=== PATIENT | female | born 2000 ===

== ENCOUNTER 2020-05-28 17:05 | Emergency (ER) | payer BC, OTHER ==
--- NOTE | 2020-05-28 18:22 | EDM.PDOC ---
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 She has cramping on and off. No fever, chills or cough. She has been spotting off and on with some mild cramping. Denies drugs or ETOH. Onset: Today Duration: Constant Location: Reports: Abdomen Quality: Reports: Other (cramping) Severity: Mild Improves with: Reports: None Worsens with: Reports: None Associated Symptoms: Reports: No Other Symptoms - Related Data Allergies Allergy/AdvReac Type Severity Reaction Status Date / Time amoxicillin Allergy Hives Verified 05/28/20 17:12 Home Meds: Home Meds . [No Known Home Meds] 12/01/18 [History] Past Medical History - Past Health History Medical/Surgical History: Denies Medical/Surgical History Cardiovascular History: Reports: None Respiratory History: Reports: None Gastrointestinal History: Reports: None Genitourinary History: Reports: None STATISTICIAN THEORETICAL History: Reports: Musculoskeletal History: Reports: Other (See Below) Other Musculoskeletal History: fx right arm Neurological History: Reports: None Psychiatric History: Reports: None Endocrine/Metabolic History: Reports: None Hematologic History: Reports: None Immunologic History: Reports: None Oncologic (Cancer) History: Reports: None Dermatologic History: Reports: None - Infectious Disease History Infectious Disease History: Reports: None - Past Surgical History Head Surgeries/Procedures: Reports: None HEENT Surgical History: Reports: Oral Surgery Musculoskeletal Surgical History: Reports: Other (See Below) Other Musculoskeletal Surgeries/Procedures:: right arm Social & Family History - Family History Family Medical History: Noncontributory - Tobacco Use Smoking Status *Q: Never Smoker Second Hand Smoke Exposure: No - Caffeine Use Caffeine Use: Reports: None - Recreational Drug Use Recreational Drug Use: No ED ROS GENERAL - Review of Systems Review Of Systems: Comprehensive ROS is negative, except as noted in HPI. ED EXAM - Physical Exam Exam: See Below Exam Limited By: No Limitations General Appearance: Alert, WD/WN, No Apparent Distress Eye Exam: Bilateral Eye: Normal Inspection Head: Atraumatic, Normocephalic Neck: Normal Inspection, Supple, Non-Tender, Full Range of Motion Respiratory/Chest: No Respiratory Distress, Lungs Clear, Normal Breath Sounds, No Accessory Muscle Use, Chest Non-Tender Cardiovascular: Normal Peripheral Pulses, Regular Rate, Rhythm, No Edema, No Gallop, No JVD, No Murmur, No Rub GI/Abdominal Exam: Other (soft. Non tender.) Neurological: Alert, Oriented, CN II-XII Intact, Normal Cognition, Normal Gait, Normal Reflexes, No Motor/Sensory Deficits Psychiatric: Normal Affect, Normal Mood Skin Exam: Warm, Dry, Intact, Normal Color, No Rash Course - Vital Signs Text/Narrative:: 11 weeks with positive HCG today and mild cramping and spotting. She is to see her [facility] this week. Rest and no lifting. Last Recorded V/S: Last Vital Signs Temp 98.4 F 05/28/20 17:13 Pulse 78 05/28/20 17:13 Resp 16 05/28/20 17:13 BP 119/68 05/28/20 17:13 Pulse Ox 99 05/28/20 17:13 - Orders/Labs/Meds Labs: Laboratory Tests 05/28/20 05/28/20 Range/Units 17:33 17:39 HCG, Qual Positive Urine Color Yellow (YELLOW) Urine Appearance Cloudy (CLEAR) Urine pH 6.0 (5.0-9.0) Ur Specific [place] >= 1.030 (1.005-1.030) Urine Protein Trace H (NEGATIVE) Urine Glucose (UA) Negative (NEGATIVE) Urine Ketones 15 H (NEGATIVE) Urine Occult Blood Large H (NEGATIVE) Urine Nitrite Negative (NEGATIVE) Urine Bilirubin Negative (NEGATIVE) Urine Urobilinogen 1.0 (0.2-1.0) mg/dL Ur Leukocyte Esterase Negative (NEGATIVE) Urine RBC >100 H /HPF Urine WBC 0-5 (0-5/HPF) /HPF Ur Epithelial Cells Few (NOT SEEN) /HPF Amorphous Sediment Few (NOT SEEN) /HPF Urine Bacteria Few (0-FEW/HPF) /HPF Urine Mucus Few H (NOT SEEN) /LPF Departure - Departure Time of Disposition: 18:20 Disposition: Home, Self-Care 01 Condition: Good Clinical Impression: 11 weeks gestation of - Discharge Information Instructions: Abdominal Pain During , [id number] Forms: ED Department Discharge Additional Instructions: Make appt with your OB doctor this next week. Your test is still positive. You may have some spotting and may be normal or could mean you may abort. No lifting. Drink lots of fluids, and rest. Sepsis Event Note (ED) - Evaluation Sepsis Screening Result: No Definite Risk - Focused Exam Vital Signs: Vital Signs Temp Pulse Resp BP Pulse Ox 05/28/20 17:13 98.4 F 78 16 119/68 99 I have read and agree with the documentation that has been completed regarding this visit. By signing this record, I attest that the documentation was completed in my physical presence and is an accurate record of the encounter.
== END 2020-05-28 18:25 | disposition home or self-care (01) ==
LOC: DL.ED 17:05
DX: O99.89 Other specified diseases and conditions complicating pregnancy, childbirth and the puerperium (principal); R10.9 Unspecified abdominal pain; Z88.1 Allergy status to other antibiotic agents; Z3A.11 11 weeks gestation of pregnancy
CPT/HCPCS: 36415; 81001; 84703; 99283; 99284

== ENCOUNTER 2020-05-30 23:21 | Emergency (ER) | payer BC, OTHER ==
[2020-05-31 00:06] LABS: ANION GAP 15.4 mEq/L (7-13); CHLORIDE,CL 103 mmol/L (98-107); SODIUM,NA 139 mmol/L (136-145)
[2020-05-31] MEDS: Ondansetron 4 MG/2 ML SDV IVPUSH ONE (00:33)
[2020-05-31] MEDS: HYDROmorphone 0.5 MG/0.5 ML Syringe IVPUSH ONE (00:34)
--- NOTE | 2020-05-31 00:56 | EDM.PDOC ---
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 Estimate s 12 weeks , US at 9 weeks baby per report, Passed large tissue yesterday with voiding. 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: , Spontaneous Musculoskeletal History: Reports: Other (See Below) Other Musculoskeletal History: fx right arm Neurological History: Reports: None Psychiatric History: Reports: None Endocrine/Metabolic History: Reports: None Hematologic History: Reports: None Immunologic History: Reports: None Oncologic (Cancer) History: Reports: None Dermatologic History: Reports: None - Infectious Disease History Infectious Disease History: Reports: None - Past Surgical History Head Surgeries/Procedures: Reports: None HEENT Surgical History: Reports: Oral Surgery Musculoskeletal Surgical History: Reports: Other (See Below) Other Musculoskeletal Surgeries/Procedures:: right arm Social & Family History - Family History Family Medical History: Noncontributory - Tobacco Use Smoking Status *Q: Never Smoker Second Hand Smoke Exposure: No - Caffeine Use Caffeine Use: Reports: None - Recreational Drug Use Recreational Drug Use: No ED ROS GENERAL - Review of Systems Review Of Systems: Comprehensive ROS is negative, except as noted in HPI. ED EXAM - Physical Exam Exam: See Below Exam Limited By: No Limitations General Appearance: Alert, Moderate Distress Eye Exam: Bilateral Eye: EOMI Ears: Normal External Exam Nose: Normal Inspection Throat/Mouth: Normal Inspection, Normal Oropharynx, Perioral Cyanosis Head: Atraumatic Neck: Normal Inspection Respiratory/Chest: No Respiratory Distress, Lungs Clear, Normal Breath Sounds Cardiovascular: Normal Peripheral Pulses, Regular Rate, Rhythm GI/Abdominal Exam: Normal Bowel Sounds, Soft, Tender (Female) Exam: Other (small amount dark blood vaginal os, partial insertion speculum into vaginal vault, products of conseptio readily slid to bill of speculum , sac intact. scant bleeding after passage Patient reports cramping and pain improved. ) Course - Vital Signs Last Recorded V/S: Last Vital Signs Temp 98.6 F 05/30/20 23:25 Pulse 67 05/30/20 23:25 Resp 18 05/30/20 23:25 BP 119/81 05/30/20 23:25 Pulse Ox 99 05/30/20 23:25 - Orders/Labs/Meds Orders: Active Orders 24 hr Category Date Time Status OB Ltd 1 or More Fetus [US] Urgent Exams 05/31/20 00:08 Ordered CULTURE BLOOD [BC] Stat Lab 05/30/20 23:39 Received Labs: Laboratory Tests 05/30/20 05/30/20 05/30/20 Range/Units 23:39 23:39 23:39 WBC 11.3 H (5.0-10.0) 10^3/uL RBC 4.32 (4.2-5.4) 10^6/uL Hgb 13.0 (12.0-16.0) g/dL Hct 38.6 (37.0-47.0) % MCV 89.4 (80-100) fL MCH 30.1 (27.0-34.0) pg MCHC 33.7 (33.0-35.0) g/dL Plt Count 242 (150-450) 10^3/uL Neut % (Auto) 70.2 (42.2-75.2) % Lymph % (Auto) 20.7 (20.5-50.1) % [place] % (Auto) 7.1 (2-8) % Eos % (Auto) 1.8 (1.0-3.0) % Baso % (Auto) 0.2 (0.0-1.0) % Sodium 139 (136-145) mmol/L Potassium 3.4 L (3.5-5.1) mmol/L Chloride 103 (98-107) mmol/L Carbon Dioxide 24 (21-32) mmol/L Anion Gap 15.4 H (7-13) mEq/L BUN 10 (7-18) mg/dL Creatinine 0.72 (0.55-1.02) mg/dL Est Cr Clr Drug Dosing 93.27 mL/min Estimated GFR (MDRD) > 60 BUN/Creatinine Ratio 13.9 (No establ ref range) Glucose 89 (74-99) mg/dL Lactic Acid 1.0 (0.4-2.0) mmol/L Calcium 8.4 L (8.5-10.1) mg/dL Total Bilirubin 0.8 (0.2-1.0) mg/dL AST 15 (15-37) U/L ALT 22 (14-59) U/L Alkaline Phosphatase 41 L (46-116) U/L Total Protein 6.8 (6.4-8.2) g/dL Albumin 3.9 (3.4-5.0) g/dL Globulin 2.9 Albumin/Globulin Ratio 1.3 Meds: Medications Discontinued Medications Generic Name Dose Route Start Last Admin Trade Name Chelsey PRN Reason Stop Dose Admin Hydromorphone HCl 0.5 mg 05/31/20 00:08 05/31/20 00:34 Dilaudid IVPUSH 05/31/20 00:09 0.5 mg ONETIME ONE Administration Ondansetron HCl 4 mg 05/31/20 00:08 05/31/20 00:33 Zofran IVPUSH 05/31/20 00:09 4 mg ONETIME ONE Administration - Re-Assessments/Exams Free Text/Narrative Re-Assessment/Exam: 05/31/20 06:[address] Mohr. Departure - Departure Time of Disposition: 00:57 Disposition: Home, Self-Care 01 Condition: Good Clinical Impression: Miscarriage - Discharge Information *PRESCRIPTION DRUG MONITORING PROGRAM REVIEWED*: No *COPY OF PRESCRIPTION DRUG MONITORING REPORT IN PATIENT CJ: No Instructions: Miscarriage, [id number] Referrals: Jennifer Contreras NP [Primary Care Provider] - Forms: ED Department Discharge Additional Instructions: 05/31/20 00:54 rest increase fluids ibuprofen or tylenol, alternating every 4 hours as needed for discomfort urgent follow up if severe, pain, fever or increased bleeding Follow up in clinic as scheduled Sepsis Event Note (ED) - Evaluation Sepsis Screening Result: No Definite Risk - Focused Exam Vital Signs: Vital Signs Temp Pulse Resp BP Pulse Ox 05/30/20 23:25 98.6 F 67 18 119/81 99 - My Orders Last 24 Hours: My Active Orders 05/30/20 23:39 CULTURE BLOOD [BC] Stat 05/31/20 00:08 OB Ltd 1 or More Fetus [US] Urgent - Assessment/Plan Last 24 Hours: My Active Orders 05/30/20 23:39 CULTURE BLOOD [BC] Stat 05/31/20 00:08 OB Ltd 1 or More Fetus [US] Urgent
== END 2020-05-31 01:12 | disposition home or self-care (01) ==
LOC: DL.ED 23:21
DX: O03.9 Complete or unspecified spontaneous abortion without complication (principal); Z88.1 Allergy status to other antibiotic agents
CPT/HCPCS: 36415; 80053; 83605; 85025; 87040; 96374; 96375; 99284; J1170; J2405

== ENCOUNTER 2020-10-20 07:29 | Emergency (ER) | payer BC, OTHER ==
--- NOTE | 2020-10-20 07:40 | EDM.PDOC ---
"ED HPI GENERAL MEDICAL PROBLEM - General Chief Complaint: Abdominal Pain Stated Complaint: LOWER RIGHT ABDOMINAL PAIN/VOMMITING Time Seen by Provider: 10/20/20 07:50 Source of Information: Reports: Patient, RN, RN Notes Reviewed History Limitations: Reports: No Limitations - History of Present Illness INITIAL COMMENTS - FREE TEXT/NARRATIVE: Patient presents to the ED via personal vehicle with complaints of right lower quadrant pain. The patient states the pain began this morning while she was getting ready for work and has progressively worsened over that time. She characterizes it as sharp and stabbing in nature; she states it radiates to her right lateral lower abdomen. The patient states she is currently , L0, with a miscarriage in May 2020. She states her LMP was 08/14/2020; she has not yet had her first OB visit but states she is scheduled for this coming Friday10/24/2020 at [facility]. She has not taken any medications for this pain. She denies experiencing pain similar to this in the past. She does attest to nausea with one bout of emesis this morning. She does attest to dysuria with hematuria for which she started taking Asos. She denies fever, shaking chills, recent illness, headache, vision changes, palpitations, diarrhea, vaginal discharge, or vaginal bleeding. She denies tobacco, alcohol, or recreational drug use. 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 Musculoskeletal History: Reports: Other (See Below) Other Musculoskeletal History: fx right arm Neurological History: Reports: None Psychiatric History: Reports: None Endocrine/Metabolic History: Reports: None Hematologic History: Reports: None Immunologic History: Reports: None Oncologic (Cancer) History: Reports: None Dermatologic History: Reports: None - Infectious Disease History Infectious Disease History: Reports: None - Past Surgical History Head Surgeries/Procedures: Reports: None HEENT Surgical History: Reports: Oral Surgery Musculoskeletal Surgical History: Reports: Other (See Below) Other Musculoskeletal Surgeries/Procedures:: right arm Social & Family History - Family History Family Medical History: No Pertinent Family History - Caffeine Use Caffeine Use: Reports: None ED ROS GENERAL - Review of Systems Review Of Systems: Comprehensive ROS is negative, except as noted in HPI. ED EXAM, GI/ABD - Physical Exam Exam: See Below Exam Limited By: No Limitations General Appearance: Alert, WD/WN, No Apparent Distress, Thin Eyes: Bilateral: Normal Appearance, EOMI Respiratory/Chest: No Respiratory Distress, Lungs Clear, Normal Breath Sounds, No Accessory Muscle Use, Chest Non-Tender Cardiovascular: Normal Peripheral Pulses, Regular Rate, Rhythm, No Edema, No Gal lop, No JVD, No Murmur, No Rub GI/Abdominal Exam: Abnormal Bowel Sounds (Hypoactive) Course - Vital Signs Last Recorded V/S: Last Vital Signs Temp 98.1 F 10/20/20 07:35 Pulse 93 10/20/20 07:35 Resp 16 10/20/20 07:35 BP 106/57 L 10/20/20 07:35 Pulse Ox 99 10/20/20 07:35 - Orders/Labs/Meds Orders: Active Orders 24 hr Category Date Time Status CULTURE URINE [RM] Stat Lab 10/20/20 07:41 Received Labs: Laboratory Tests 10/20/20 10/20/20 10/20/20 Range/Units 07:41 07:46 07:46 WBC 9.1 (5.0-10.0) 10^3/uL RBC 4.58 (4.2-5.4) 10^6/uL Hgb 14.0 (12.0-16.0) g/dL Hct 40.9 (37.0-47.0) % MCV 89.3 (80-100) fL MCH 30.6 (27.0-34.0) pg MCHC 34.2 (33.0-35.0) g/dL Plt Count 276 (150-450) 10^3/uL Neut % (Auto) 69.4 (42.2-75.2) % Lymph % (Auto) 20.8 (20.5-50.1) % [place] % (Auto) 8.4 H (2-8) % Eos % (Auto) 1.2 (1.0-3.0) % Baso % (Auto) 0.2 (0.0-1.0) % Sodium 134 L (136-145) mmol/L Potassium 3.3 L (3.5-5.1) mmol/L Chloride 101 (98-107) mmol/L Carbon Dioxide 24 (21-32) mmol/L Anion Gap 12.3 (7-13) mEq/L BUN 7 (7-18) mg/dL Creatinine 0.81 (0.55-1.02) mg/dL Est Cr Clr Drug Dosing 84.18 mL/min Estimated GFR (MDRD) > 60 BUN/Creatinine Ratio 8.6 (No establ ref range) Glucose 96 (74-99) mg/dL Calcium 9.2 (8.5-10.1) mg/dL Total Bilirubin 1.1 H (0.2-1.0) mg/dL AST 12 L (15-37) U/L ALT 18 (14-59) U/L Alkaline Phosphatase 39 L (46-116) U/L C-Reactive Protein 0.6 (0.0-0.9) mg/dL Total Protein 7.2 (6.4-8.2) g/dL Albumin 4.1 (3.4-5.0) g/dL Globulin 3.1 Albumin/Globulin Ratio 1.3 HCG, Quant (0-6) mIU/mL Urine Color Yellow (YELLOW) Urine Appearance Cloudy (CLEAR) Urine pH 6.0 (5.0-9.0) Ur Specific [place] >= 1.030 (1.005-1.030) Urine Protein 30 H (NEGATIVE) Urine Glucose (UA) Negative (NEGATIVE) Urine Ketones Negative (NEGATIVE) Urine Occult Blood Large H (NEGATIVE) Urine Nitrite Negative (NEGATIVE) Urine Bilirubin Negative (NEGATIVE) Urine Urobilinogen 0.2 (0.2-1.0) mg/dL Ur Leukocyte Esterase Trace H (NEGATIVE) Urine RBC 75-100 H /HPF Urine WBC 0-5 (0-5/HPF) /HPF Ur Epithelial Cells Many H (NOT SEEN) /HPF Amorphous Sediment Few (NOT SEEN) /HPF Urine Bacteria Moderate H (0-FEW/HPF) /HPF Urine Mucus Occasional (NOT SEEN) /LPF 12/11/20 Range/Units 07:46 WBC (5.0-10.0) 10^3/uL RBC (4.2-5.4) 10^6/uL Hgb (12.0-16.0) g/dL Hct (37.0-47.0) % MCV (80-100) fL MCH (27.0-34.0) pg MCHC (33.0-35.0) g/dL Plt Count (150-450) 10^3/uL Neut % (Auto) (42.2-75.2) % Lymph % (Auto) (20.5-50.1) % [place] % (Auto) (2-8) % Eos % (Auto) (1.0-3.0) % Baso % (Auto) (0.0-1.0) % Sodium (136-145) mmol/L Potassium (3.5-5.1) mmol/L Chloride (98-107) mmol/L Carbon Dioxide (21-32) mmol/L Anion Gap (7-13) mEq/L BUN (7-18) mg/dL Creatinine (0.55-1.02) mg/dL Est Cr Clr Drug Dosing mL/min Estimated GFR (MDRD) BUN/Creatinine Ratio (No establ ref range) Glucose (74-99) mg/dL Calcium (8.5-10.1) mg/dL Total Bilirubin (0.2-1.0) mg/dL AST (15-37) U/L ALT (14-59) U/L Alkaline Phosphatase (46-116) U/L C-Reactive Protein (0.0-0.9) mg/dL Total Protein (6.4-8.2) g/dL Albumin (3.4-5.0) g/dL Globulin Albumin/Globulin Ratio HCG, Quant 07546 H (0-6) mIU/mL Urine Color (YELLOW) Urine Appearance (CLEAR) Urine pH (5.0-9.0) Ur Specific [place] (1.005-1.030) Urine Protein (NEGATIVE) Urine Glucose (UA) (NEGATIVE) Urine Ketones (NEGATIVE) Urine Occult Blood (NEGATIVE) Urine Nitrite (NEGATIVE) Urine Bilirubin (NEGATIVE) Urine Urobilinogen (0.2-1.0) mg/dL Ur Leukocyte Esterase (NEGATIVE) Urine RBC /HPF Urine WBC (0-5/HPF) /HPF Ur Epithelial Cells (NOT SEEN) /HPF Amorphous Sediment (NOT SEEN) /HPF Urine Bacteria (0-FEW/HPF) /HPF Urine Mucus (NOT SEEN) /LPF - Radiology Interpretation Free Text/Narrative:: [facility] [place] [facility] Final Radiology Report Call: [phone] assistance Online chat: [email or web address] Name: PADMINI CORADO Age: 20Years F Date: 10/20/2020 SSN: -- : 2000 Study: US OB TRANSVAGINAL Requesting Physician: Pam Son Images: 88 Addl Studies: Provided Clinical History: RLQ pain; Sudden onset Contrast: Without Contrast Medium: Contrast Amount: Contrast Method: Page 1 of 2 PROCEDURE INFORMATION: Exam: US , Transvaginal Exam date and time: 10/20/2020 8:27 AM Age: 20 years old Clinical indication: complicated by abdominal or pelvic pain; Right lower quadrant; First trimester; Gestational age or lmp: 9 w 0 d; ; Additional info: Rlq pain; Sudden onset TECHNIQUE: Imaging protocol: Real-time transvaginal obstetrical ultrasound of the maternal pelvis and a first trimester with image documentation. Transvaginal imaging was used for better evaluation of the fetus, adnexa, and/or cervix. COMPARISON: No relevant prior studies available. FINDINGS: Gestation: There is a single intrauterine with a crown-rump length of 2.15 cm corresponding to 8 weeks 6 days. The gestational sac measures 3.6 cm corresponding to 9 weeks 1 day. heart rate: 167 BPM. BIOMETRY: Gestational age (AUA): GESTATIONAL AGE AUA BY ULTRASOUND: 9 weeks 0 days. Estimated due date (AUA): NINI BY ULTRASOUND: 05/25/2021 Gestational age by LMP: 9 weeks 3 days Estimated due date (LMP):NINI by LMP 05/22/2021 (LMP 08/15/2020) MATERNAL: Right adnexa: Normal. Subcentimeter right ovarian follicle. Left adnexa: Normal. Intraperitoneal space: No free fluid PADMINI CORADO | Final Radiology Report CONFIDENTIALITY STATEMENT This report is intended only for use by the referring physician, and only in accordance with law. If you received this in error, call [phone]. Page 2 of 2 IMPRESSION: Single viable intrauterine with pole measuring 8 weeks 6 days. AUA by ultrasound 9 weeks 0 days. Thank you for allowing us to participate in the care of your patient. Dictated and Authenticated by: Aleida Downing MD 10/20/2020 10:13 AM Central Time ([place] & [place]) [facility] Final Radiology Report Call: [phone] assistance Online chat: [email or web address] Name: PADMINI CORADO Age: 20Years F Date: 10/20/2020 SSN: -- : 2000 Study: US OB LTD 1 OR MORE FETUS Requesting Physician: Pam Son Images: 88 Addl Studies: Provided Clinical History: RLQ pain; Sudden onset Contrast: Without Contrast Medium: Contrast Amount: Contrast Method: Page 1 of 2 PROCEDURE INFORMATION: Exam: US , Limited Exam date and time: 10/20/2020 8:27 AM Age: 20 years old Clinical indication: complicated by abdominal or pelvic pain; Right lower quadrant; First trimester; Gestational age or lmp: 9 w 0 d; ; Additional info: Rlq pain; Sudden onset TECHNIQUE: Imaging protocol: Real-time ultrasound of the maternal uterus with image documentation. Exam focused on the clinical indication. COMPARISON: No relevant prior studies available. FINDINGS: Gestation: There is a single intrauterine with a crown-rump length of 2.15 cm corresponding to 8 weeks 6 days. The gestational sac measures 3.6 cm corresponding to 9 weeks 1 day. There is a normal yolk sac measuring 0.6 cm. heart rate: 167 BPM. Gestational age (AUA): 9 weeks 0 days. Estimated due date (AUA): 05/25/2021 Gestational age by LMP: 9 weeks 3 days Estimated due date (LMP):05/22/2021 (LMP 08/15/2020) Right adnexa: Normal. Subcentimeter right ovarian follicle. Left adnexa: Normal. Intraperitoneal space: No free fluid IMPRESSION: Single viable intrauterine with pole measuring 8 weeks 6 days. AUA by ultrasound 9 weeks 0 days. PADMINI CORADO | Final Radiology Report CONFIDENTIALITY STATEMENT This report is intended only for use by the referring physician, and only in accordance with law. If you received this in error, call [phone]. Page 2 of 2 Thank you for allowing us to participate in the care of your patient. Dictated and Authenticated by: Aleida Downing MD 10/20/2020 10:19 AM Central Time ( & [place]) [facility] Final Radiology Report Call: [phone] assistance Online chat: [email or web address] Name: PADMINI CORADO Age: 20Years F Date: 10/20/2020 SSN: -- : 2000 Study: US RETROPERITONEAL LTD Requesting Physician: Pam Son Images: 23 Addl Studies: Provided Clinical History: RLQ pain; Sudden onset Contrast: Without Contrast Medium: Contrast Amount: Contrast Method: CONFIDENTIALITY STATEMENT This report is intended only for use by the referring physician, and only in accordance with law. If you received this in error, call [phone]. Page 1 of 1 PROCEDURE INFORMATION: Exam: US Retroperitoneal Limited, Kidneys Exam date and time: 10/20/2020 8:50 AM Age: 20 years old Clinical indication: Abdominal pain; Acute; ; Additional info: Rlq pain; Sudden onset TECHNIQUE: Imaging protocol: Real-time ultrasound of the retroperitoneum with image documentation. Examination was focused on the kidneys. COMPARISON: No relevant prior studies available. FINDINGS: Right kidney: The right kidney measures 9.07 cm x 4.0 cm x 5.4 cm. Multiple small echogenic foci may represent nephrolithiasis. No hydronephrosis. No mass. Left kidney: The left kidney measures 10 x 4.5 x 5.5 cm. No stones. No hydronephrosis. No mass. Intraperitoneal: No evidence of free fluid. IMPRESSION: 1. Possibly right nephrolithiasis. No hydronephrosis. 2. Unremarkable left kidney. Thank you for allowing us to participate in the care of your patient. Dictated and Authenticated by: Aleida Downing MD 10/20/2020 10:27 AM Central Time ([place] & [place]) - Re-Assessments/Exams Free Text/Narrative Re-Assessment/Exam: 10/20/20 US of OB and R Kidney positive for follicular cyst on R ovary, fetus observed within the uterus; discussed the possibility of kidney stones within the kidney, but no evidence of stones within the ureter, bladder, or urethra. Will treat UTI with Macrobid 100mg BID x7 days. Discussed red flag signs and symptoms which would warrant immediate reevaluation. Patient to continue with previously scheduled OB appointment on Friday. Patient verbalized understanding and agreement with the plan of care. Departure - Departure Time of Disposition: 09:27 Disposition: Home, Self-Care 01 Condition: Good Clinical Impression: , UTI (urinary tract infection), Follicular cyst of right ovary - Discharge Information *PRESCRIPTION DRUG MONITORING PROGRAM REVIEWED*: Not Applicable *COPY OF PRESCRIPTION DRUG MONITORING REPORT IN PATIENT CJ: Not Applicable Forms: ED Department Discharge Additional Instructions: Rx: Macrobid 1.) Drink plenty of fluids to stay hydrated. 2.) Keep your previously scheduled OB appointment. 3.) Return to your primary care provider, or the emergency department, with any fever, inability to void, significant lower abdominal pain, or vaginal bleeding. Sepsis Event Note (ED) - Focused Exam Vital Signs: Vital Signs Temp Pulse Resp BP Pulse Ox 10/20/20 07:35 98.1 F 93 16 106/57 L 99 - My Orders Last 24 Hours: My Active Orders 10/20/20 07:41 CULTURE URINE [RM] Stat - Assessment/Plan Last 24 Hours: My Active Orders 10/20/20 07:41 CULTURE URINE [RM] Stat"
[2020-10-20 08:24] LABS: ANION GAP 12.3 mEq/L (7-13); CHLORIDE,CL 101 mmol/L (98-107); SODIUM,NA 134 mmol/L (136-145)
--- NOTE | 2020-10-20 10:14 | US ---
PROCEDURE INFORMATION: Exam: US , Transvaginal Exam date and time: 10/20/2020 8:27 AM Age: 20 years old Clinical indication: complicated by abdominal or pelvic pain; Right lower quadrant; First trimester; Gestational age or lmp: 9 w 0 d; ; Additional info: Rlq pain; Sudden onset TECHNIQUE: Imaging protocol: Real-time transvaginal obstetrical ultrasound of the maternal pelvis and a first trimester with image documentation. Transvaginal imaging was used for better evaluation of the fetus, adnexa, and/or cervix. COMPARISON: No relevant prior studies available. FINDINGS: Gestation: There is a single intrauterine with a crown-rump length of 2.15 cm corresponding to 8 weeks 6 days. The gestational sac measures 3.6 cm corresponding to 9 weeks 1 day. heart rate: 167 BPM. BIOMETRY: Gestational age (AUA): GESTATIONAL AGE AUA BY ULTRASOUND: 9 weeks 0 days. Estimated due date (AUA): NINI BY ULTRASOUND: 05/25/2021 Gestational age by LMP: 9 weeks 3 days Estimated due date (LMP):NINI by LMP 05/22/2021 (LMP 08/15/2020) MATERNAL: Right adnexa: Normal. Subcentimeter right ovarian follicle. Left adnexa: Normal. Intraperitoneal space: No free fluid IMPRESSION: Single viable intrauterine with pole measuring 8 weeks 6 days. AUA by ultrasound 9 weeks 0 days.
--- NOTE | 2020-10-20 10:19 | US ---
PROCEDURE INFORMATION: Exam: US , Limited Exam date and time: 10/20/2020 8:27 AM Age: 20 years old Clinical indication: complicated by abdominal or pelvic pain; Right lower quadrant; First trimester; Gestational age or lmp: 9 w 0 d; ; Additional info: Rlq pain; Sudden onset TECHNIQUE: Imaging protocol: Real-time ultrasound of the maternal uterus with image documentation. Exam focused on the clinical indication. COMPARISON: No relevant prior studies available. FINDINGS: Gestation: There is a single intrauterine with a crown-rump length of 2.15 cm corresponding to 8 weeks 6 days. The gestational sac measures 3.6 cm corresponding to 9 weeks 1 day. There is a normal yolk sac measuring 0.6 cm. heart rate: 167 BPM. Gestational age (AUA): 9 weeks 0 days. Estimated due date (AUA): 05/25/2021 Gestational age by LMP: 9 weeks 3 days Estimated due date (LMP):05/22/2021 (LMP 08/15/2020) Right adnexa: Normal. Subcentimeter right ovarian follicle. Left adnexa: Normal. Intraperitoneal space: No free fluid IMPRESSION: Single viable intrauterine with pole measuring 8 weeks 6 days. AUA by ultrasound 9 weeks 0 days.
--- NOTE | 2020-10-20 10:27 | US ---
PROCEDURE INFORMATION: Exam: US Retroperitoneal Limited, Kidneys Exam date and time: 10/20/2020 8:50 AM Age: 20 years old Clinical indication: Abdominal pain; Acute; ; Additional info: Rlq pain; Sudden onset TECHNIQUE: Imaging protocol: Real-time ultrasound of the retroperitoneum with image documentation. Examination was focused on the kidneys. COMPARISON: No relevant prior studies available. FINDINGS: Right kidney: The right kidney measures 9.07 cm x 4.0 cm x 5.4 cm. Multiple small echogenic foci may represent nephrolithiasis. No hydronephrosis. No mass. Left kidney: The left kidney measures 10 x 4.5 x 5.5 cm. No stones. No hydronephrosis. No mass. Intraperitoneal: No evidence of free fluid. IMPRESSION: 1. Possibly right nephrolithiasis. No hydronephrosis. 2. Unremarkable left kidney.
== END 2020-10-20 10:44 | disposition home or self-care (01) ==
LOC: DL.ED 07:29
DX: N83.01 Follicular cyst of right ovary (principal); O23.41 Unspecified infection of urinary tract in pregnancy, first trimester; Z88.1 Allergy status to other antibiotic agents; Z3A.09 9 weeks gestation of pregnancy
CPT/HCPCS: 36415; 76775; 76815; 76817; 80053; 81001; 84702; 85025; 86140; 87086; 99283; 99284-25

== ENCOUNTER 2021-06-01 00:28 | Inpatient (IN) | payer BC ==
[~2021-06-01 00:28] MED LIST: Acetaminophen 325 MG Tab PO PRN; Carboprost Tromethamine 250 MCG/1 ML Amp IM PRN; Lactated Ringers 1,000 ML IV ONE; Lactated Ringers 500 ML IV SCH; Lidocaine 1% 30 ML SDV INJECT PRN; Methylergonovine 0.2 MG/1 ML Amp IM PRN; Misoprostol 400 MCG (4 X 100 MCG TAB) RECTAL PRN; Misoprostol 50 MCG (1/2 of 100 MCG) Tab PO PRN; Naloxone 2 MG/2 ML Syringe IVPUSH PRN; Ondansetron 4 MG/2 ML SDV IVPUSH PRN; Oxytocin/Normal Saline 30 UNIT/500 ML BAG IV SCH; Promethazine 25 MG/ML SDV IM PRN; Sodium Chloride 0.9% 10 ML Syringe FLUSH PRN; Tranexamic Acid 1,000 MG in Sodium Chloride 0.9% 100 ML IV PRN; ePHEDrine 50 MG/ML SDV IVPUSH PRN
[2021-06-01] MEDS: Lactated Ringers 1,000 ML IV SCH ×6 (05:02→19:52)
[2021-06-01] MEDS ORDERED: Nalbuphine 10 MG/1 ML Vial IM STA (07:02)
[2021-06-01] MEDS ORDERED: fentaNYL 100 MCG/2 ML SDV ONE ×2 (12:35→17:39)
[2021-06-01] MEDS ORDERED: EPINEPHrine 1 MG/ML SDV ONE ×2 (12:35→12:36)
[2021-06-01] MEDS ORDERED: Sodium Bicarbonate 4.2% 2.5 MEQ/5 ML SDV ONE ×2 (12:35→12:36)
[2021-06-01] MEDS ORDERED: Sodium Chloride 0.9% 20 ML SDV ONE (12:36)
[2021-06-01] MEDS ORDERED: fentaNYL 100 MCG/2 ML SDV ITHECAL ONE (12:36)
--- NOTE | 2021-06-01 13:01 | PCM.SN.2 ---
- Free Text/Narrative Note: Intrathecal. Sitting position, sterile prep and drape. 1% lidocaine w bicarb for skinwheal to L2 L3 interspace. Introducer, 24 ga pencan x 1. I:1000 pf epi wash, 15 mcg pf sufenta, 35 mcg pf fentanyl, 0.4 ml pf NS and 6 mg of 0.75% pf Marcaine injected after CSF aspiration. Pt to L lateral position after 20 seconds. Procedure time 1230 to 1305
--- NOTE | 2021-06-01 16:20 | PN ---
DATE: 06/01/2021 SUBJECTIVE: The patient resting comfortably now that she has had her intrathecal. She did have some mild hypotension and bradycardia but that has recovered and she has had a couple of episodes of emesis, but feeling comfortable to proceeding with artificial rupture of membranes. OBJECTIVE: Vital Signs: Now stable. Please see monitoring strip for blood pressures. Genitalia: Cervix 5 cm dilated but 80% effaced, bulging bag of water intact, ruptured with amnio hook and return of clear amniotic fluid. ASSESSMENT: 1. 40-5/7 weeks intrauterine , 2, para 0-0-1-0. 2. History of spontaneous . 3. Anemia of . 4. Hypothyroidism of . PLAN: Continue labor monitoring with adjustment to plan as needed. Active labor management will continue. [facility] /[id number]
[2021-06-01] MEDS ORDERED: fentaNYL 100 MCG/2 ML SDV IVPUSH ONE ×2 (17:38→17:44)
[2021-06-01] MEDS ORDERED: Citric Acid/Sodium Citrate Solution 30 ML Cup ONE (18:16)
[2021-06-01] MEDS ORDERED: ceFAZolin 2 GM in Premix Bag 1 BAG IV ONE (18:17)
[2021-06-01] MEDS ORDERED: Tranexamic Acid 1,000 MG in Sodium Chloride 0.9% 100 ML IV PRN (18:17)
[2021-06-01] MEDS ORDERED: Citric Acid/Sodium Citrate Solution 30 ML Cup PO ONE (18:17)
[2021-06-01] MEDS ORDERED: Lactated Ringers 1,000 ML IV SCH ×2 (18:30→20:00)
[2021-06-01] MEDS ORDERED: Oxytocin/Normal Saline 30 UNIT/500 ML BAG IV SCH (18:30)
[2021-06-01] MEDS ORDERED: Tranexamic Acid 1,000 MG in Sodium Chloride 0.9% 100 ML IV ONE (19:00)
[2021-06-01] MEDS ORDERED: Lactated Ringers 1,000 ML IV ONE (19:00)
[2021-06-01] MEDS ORDERED: Dexamethasone 4 MG/ML SDV IV ONE (19:00)
[2021-06-01] MEDS ORDERED: Ondansetron 4 MG/2 ML SDV IV ONE (19:00)
[2021-06-01] MEDS ORDERED: Morphine PF 10 MG/10 ML SDV ONE (19:00)
[2021-06-01] MEDS ORDERED: Ketorolac 30 MG/ML SDV IVPUSH ONE (19:00)
[2021-06-01] MEDS ORDERED: Ondansetron 4 MG/2 ML SDV IVPUSH PRN (20:00)
[2021-06-01] MEDS ORDERED: Naloxone 2 MG/2 ML Syringe IVPUSH PRN (20:00)
[2021-06-01] MEDS ORDERED: ePHEDrine 50 MG/ML SDV IVPUSH PRN (20:00)
[2021-06-01] MEDS ORDERED: diphenhydrAMINE 50 MG/ML SDV IVPUSH PRN (20:00)
--- NOTE | 2021-06-01 20:12 | PN ---
DATE: 06/01/2021 TIME: 4:35 p.m. SUBJECTIVE: The patient is starting to feel her contractions again and nurses notified me that her cervix is not really changing and still at 6.5 cm. OBJECTIVE: Vital Signs: Blood pressure 141/66, pulse of 62, afebrile. The patient breathing through her contractions. PELVIC: Cervix examined 6-1/2 cm dilated, now feels thicker, but nonedematous, and there is not really much pressure against the cervix with contractions. Therefore, intrauterine pressure catheter was called for and placed in the 4 o'clock position without difficulties. Appropriate flashback noted. The patient tolerated well. ASSESSMENT: 1. 40 and 5/7 weeks' intrauterine . 2. 2 para 0-0-1-0. 3. Arrest of dilatation, uncertain if contractions are adequate. PLAN: We will check the MVU and if contractions are adequate, we will give her 1 more hour to make cervical change before we recheck her and assess the situation. If contractions are not adequate, we will augment with Pitocin, and once those contractions have been adequate for an hour, we will reassess and decide if we can continue our efforts at vaginal delivery or proceed to section. The 1-hour timeframe rather than 2 has to do with family history of all females on the maternal side of the family requiring due to narrow pelvises, and the fact that she has already had 1 intrathecal, and if we give her a 2nd intrathecal and then need to go to , that increases risk of spinal anesthesia. Therefore, we are trying to minimize the number of spinal procedures being performed. [facility] /[id number]
--- NOTE | 2021-06-01 20:29 | PN ---
DATE: 06/01/2021 SUBJECTIVE: The patient very uncomfortable with her contractions. She has had 50 mcg of fentanyl and that is not adequate to control her pain. She is requesting repeat intrathecal at this time and I have agreed that we need to reassess things as it has been at least an hour of adequate MVUs to see if we can continue our efforts at vaginal delivery or if it is time to proceed with primary section. OBJECTIVE: Vital Signs: Blood pressure is 147/82, pulse of 66, afebrile. Genitourinary: Cervical checks remains 6.5 cm dilated, approximately 75% effaced. This has really not changed at all from my last check. I continued to check her during a strong contraction and there was minimal to no pressure placed on the cervix by the head and the baby seems to be stuck in the bony pelvis. Baseline heart rate 130 beats per minute. Moderate [id number] variability. Accelerations are excellent. No decelerations. [place]ling showing contractions every 2 minutes. Plato units adequate. ASSESSMENT: 1. 40-5/7 weeks' intrauterine . 2. Arrest of dilatation. 3. Suspect narrow pelvis. PLAN: At this time, we will turn off the Pitocin and proceed with primary low transverse section with spinal anesthesia. Discussed consent with the patient's boyfriend and her sister earlier today and consent forms have already been signed in the chart. She understands risk of infection and plan for preoperative antibiotics, risk of bleeding and plan for blood transfusion if necessary, and risk of injury to any internal organs, adjacent structures which were detailed to her as well as potential risk of injury to the baby or unforeseen complications for her or the baby that would require transfer to a higher level of care. [facility] /[id number]
[2021-06-01] MEDS: Simethicone 80 MG Tab.Chew PO SCH (21:00)
--- NOTE | 2021-06-01 22:50 | OR ---
DATE: 06/01/2021 PREPROCEDURE DIAGNOSES: 1. 40 and 5/7 weeks' intrauterine based on 9-week ultrasound. 2. Postdates . 3. 2, para 0-0-1-0. 4. Arrest of dilatation. 5. Blood type A positive, rubella immune, group B streptococcus negative. 6. History of miscarriage x1. 7. Anemia of . 8. Hypothyroidism of . POSTPROCEDURE DIAGNOSES: 1. 40 and 5/7 weeks' intrauterine based on 9-week ultrasound. 2. Postdates . 3. 2, now para 1-0-1-1, status post vacuum-assisted primary low transverse section. 4. Arrest of dilatation. 5. Blood type A positive, rubella immune, group B streptococcus negative. 6. History of miscarriage x1. 7. Anemia of . 8. Hypothyroidism of . [employer] FEEDER: Erin Mohr MD ANESTHESIA: Spinal. CONSENT: Discussed with the patient indications, risks, benefits, and alternatives of primary low transverse section for safe delivery of her . Discussed risk of infection and plan for preoperative antibiotics, risk of blood transfusion as well as its inherent risk, risk of injury to any internal organs and adjacent structures including, but not limited to large blood vessels, nerves, veins, fallopian tubes, ovaries, ureters, bladder, intestines, any and all adjacent other structures, potential for injury to the mother and/or baby that would require transfer to a higher level of care for management. Questions were answered. She agreed to proceed and appropriate consent forms were signed. BRIEF HISTORY: A 20-year-old with the above-listed diagnoses admitted to the hospital at midnight and underwent Cytotec induction with 50 mcg of Cytotec. Labor was progressing well and artificial rupture of membranes was performed after she received her intrathecal. She had some heart rate decelerations secondary to the hypotension from the intrathecal, and after recovery again decels after the artificial rupture. Baby then recovered and she was able to keep laboring and got to 6-1/2 cm dilated. IUPC was placed and augmentation was needed to get adequate contraction and strength; however, despite that she could not dilate beyond 6-1/2 cm. Therefore, decision to proceed with section was made. The patient was not surprised as her mother and all of her maternal aunts have required section for the same indication. PROCEDURE DETAILS: The patient was brought to the operating room and spinal anesthesia was obtained. She was laid in the dorsal supine position with leftward tilt, and Khan indwelling catheter was placed. Skin was prepped with Betadine and sterile dressings applied in the usual fashion. Skin incision was made in a Pfannenstiel location and carried down to the underlying fascia using cautery and finger dissection. The fascia incised with cautery and extended bilaterally using traction. Superior fascial edge was tented up and rectus muscles dissected off bluntly. Inferior fascial edge treated in similar fashion. The peritoneal muscles in the midline using finger dissection. The Roman retractor was then placed and appropriate location for low transverse uterine incision was made. Hysterotomy created with scalpel and extended using Graham method. was noted to be in OP position and head was brought up to the hysterotomy site and vacuum applied; however, it was essentially over the baby's moravian, so it was removed and then we readjusted to bring up more of the 's vertex and vacuum applied and with traction and concomitant fundal pressure, baby was delivered through the hysterotomy site. Nose and mouth were suctioned. Three-vessel umbilical cord was doubly clamped and cut, and baby taken to the warmer. Cord blood sample was obtained and placenta delivered by cord traction and concomitant uterine massage. Trailing membranes were removed with ring forceps. The uterus was cleared of all clots and debris with a dry lap sponge x2 and then the uterus was closed with a running stitch of 0 looped PDS in the usual fashion. A 2nd imbricating layer was also placed and resulted in good hemostasis. This layer was then irrigated, cleared of all clots and debris. Roman retractor removed. Uterus exteriorized and verified that there was no bleeding posteriorly. Fallopian tubes and ovaries were normal in appearance. Uterus then replaced in the abdominal cavity. Pericolic gutters were cleared of all clots and debris. Hysterotomy site reinspected and remained hemostatic. This layer was then irrigated and peritoneal layer closed with a running stitch of 0 Vicryl simply for reapproximation. Next, the fascia was closed with a running stitch of 0 looped PDS in the usual fashion. The subcutaneous tissue was then irrigated and skin closed with 3-0 Monocryl in subcuticular fashion. Mastisol and Steri-Strips were placed for reinforcement and sterile dressings applied. The patient tolerated the procedure well and there were no complications. ESTIMATED BLOOD LOSS: 600 mL. DISPOSITION: Mother to go to the PACU. Baby went to the Nursery. IV FLUIDS: 1000 mL of crystalloids, 250 mL of Pitocin. URINE OUTPUT: 250 mL clear. COMPLICATIONS: None. FINDINGS: Term female infant, scores of 8 and 9. Weight 8 pounds 1 ounce. Normal internal maternal anatomy. [facility] /[id number]
[2021-06-02] MEDS: Ketorolac 30 MG/ML SDV IVPUSH SCH ×3 (01:42→14:07)
[2021-06-02] MEDS: Levothyroxine 25 MCG Tab PO SCH (07:00)
[2021-06-02] MEDS: Levothyroxine 125 MCG Tab PO SCH (07:00)
[2021-06-02] MEDS: Ferrous Sulfate 325 MG Tab PO SCH (07:51)
[2021-06-02] MEDS: Prenatal Multivitamin with Calcium/Folic Acid/Iron Tab PO SCH ×2 (07:51→11:04)
[2021-06-02] MEDS: Simethicone 80 MG Tab.Chew PO SCH ×5 (07:51→20:40)
[2021-06-02] MEDS: Docusate Sodium 100 MG Cap PO PRN (11:27)
--- NOTE | 2021-06-02 11:29 | PCM.PNPP ---
- General Info Date of Service: 06/02/21 Subjective Update: Patient is doing well. She has been up to the side of the bed and did well. Mild lightheadedness that resolved in seconds. Khan is in place with adequate urine output. Tolerating a general diet. Pain is well controlled with medication--reports mild pain to right side of incision. No fever, chills or dizziness. is going well. No concerns per patient or per nursing staff. Functional Status: Reports: Pain Controlled, Tolerating Diet, Ambulating. Denies: New Symptoms - Review of Systems General: Reports: Fatigue HEENT: Reports: No Symptoms Pulmonary: Reports: No Symptoms Cardiovascular: Reports: No Symptoms Gastrointestinal: Reports: No Symptoms Genitourinary: Reports: No Symptoms Musculoskeletal: Reports: No Symptoms Skin: Reports: No Symptoms Neurological: Reports: No Symptoms - Patient Data Vital Signs - Most Recent: Last Vital Signs Temp 36.6 C 06/02/21 08:18 Pulse 60 06/02/21 08:18 Resp 16 06/02/21 08:18 BP 117/70 06/02/21 08:18 Pulse Ox 98 06/02/21 08:18 Weight - Most Recent: 78.471 kg I&O - Last 24 Hours: Intake & Output 06/01/21 06/02/21 06/02/21 22:59 06:59 14:59 Intake Total 225 1850 250 Output Total 900 1150 Balance 225 950 -900 Lab Results - Last 24 Hours: Laboratory Results - last 24 hr 06/01/21 06/02/21 Range/Units 00:45 06:05 WBC 22.9 H (5.0-10.0) 10^3/uL RBC 3.56 L (4.2-5.4) 10^6/uL Hgb 11.1 L (12.0-16.0) g/dL Hct 33.3 L (37.0-47.0) % MCV 93.5 (80-100) fL MCH 31.2 (27.0-34.0) pg MCHC 33.3 (33.0-35.0) g/dL Plt Count 199 (150-450) 10^3/uL Blood Type A POSITIVE Gel Antibody Screen Negative Med Orders - Current: Current Medications Acetaminophen (Acetaminophen 325 Mg Tab) 650 mg PO Q4H PRN PRN Reason: Pain (Mild 1-3) and fever Diphenhydramine HCl (Diphenhydramine 50 Mg/Ml Sdv) 25 mg IVPUSH Q6H PRN PRN Reason: Itching or Nausea Docusate Sodium (Docusate Sodium 100 Mg Cap) 100 mg PO Q12H PRN PRN Reason: Constipation Last Admin: 06/02/21 11:27 Dose: 100 mg Documented by: Ephedrine Sulfate (Ephedrine 50 Mg/Ml Sdv) 5 mg IVPUSH SEECOMMENT PRN PRN Reason: Other Ferrous Sulfate (Ferrous Sulfate 325 Mg Tab) 325 mg PO WITHBREAKFAST [facility] Last Admin: 06/02/21 07:51 Dose: 325 mg Documented by: Tranexamic Acid 1,000 mg/ (Sodium Chloride) 110 mls @ 660 mls/hr IV ONETIME PRN PRN Reason: Bleeding Oxytocin/Sodium Chloride (Pitocin In Ns 30 Unit/500 Ml) 30 unit in 500 mls @ 2 mls/hr IV TITRATE [facility]; Protocol Last Titration: 06/01/21 23:00 Dose: 0 munits/min, 0 mls/hr Documented by: Lactated Ringer's (Ringers, Lactated) 1,000 mls @ 125 mls/hr IV ASDIRECTED [facility] Last Admin: 06/02/21 03:45 Dose: 125 mls/hr Documented by: Ibuprofen (Ibuprofen 800 Mg Tab) 800 mg PO Q8H PRN PRN Reason: Cramping Ketorolac Tromethamine (Ketorolac 30 Mg/Ml Sdv) 15 mg IVPUSH Q6H [facility] Stop: 06/02/21 13:31 Last Admin: 06/02/21 07:50 Dose: 15 mg Documented by: Levothyroxine Sodium (Levothyroxine 125 Mcg Tab) 125 mcg PO ACBREAKFAST [facility] Last Admin: 06/02/21 07:00 Dose: 125 mcg Documented by: Levothyroxine Sodium (Levothyroxine 25 Mcg Tab) 12.5 mcg PO ACBRK [facility] Last Admin: 06/02/21 07:00 Dose: 12.5 mcg Documented by: Methylergonovine Maleate (Methylergonovine 0.2 Mg/1 Ml Amp) 0.2 mg IM ASDIRECTED PRN PRN Reason: Hemorrhage Misoprostol (Misoprostol 400 Mcg (4 X 100 Mcg Tab)) 800 mcg RECTAL ASDIRECTED PRN PRN Reason: Hemorrhage Naloxone HCl (Naloxone 2 Mg/2 Ml Syringe) 0.1 mg IVPUSH SEECOMMENT PRN PRN Reason: Respiratory Depression Naloxone HCl (Naloxone 2 Mg/2 Ml Syringe) 0.1 mg IVPUSH SEECOMMENT PRN PRN Reason: Respiratory Depression Ondansetron HCl (Ondansetron 4 Mg/2 Ml Sdv) 4 mg IVPUSH Q4H PRN PRN Reason: Nausea/Vomiting Oxycodone/Acetaminophen (Acetaminophen/Oxycodone 325-5 Mg Tab) 1 tab PO Q4H PRN PRN Reason: Pain (moderate 4-6) Oxycodone/Acetaminophen (Acetaminophen/Oxycodone 325-5 Mg Tab) 2 tab PO Q4H PRN PRN Reason: Pain (moderate 4-6) Prenat Multivit/[place]/Iron/Folic Ac ( Multivitamin With Calcium/Folic Ac id/Iron Tab) 1 each PO DAILY [facility] Last Admin: 06/02/21 11:04 Dose: Not Given Documented by: Simethicone (Simethicone 80 Mg Tab.Chew) 160 mg PO QID [facility] Last Admin: 06/02/21 11:05 Dose: Not Given Documented by: Discontinued Medications Acetaminophen (Acetaminophen 325 Mg Tab) 650 mg PO Q4H PRN PRN Reason: Pain/Fever Carboprost Tromethamine (Carboprost Tromethamine 250 Mcg/1 Ml Amp) 250 mcg IM ASDIRECTED PRN PRN Reason: HEMORRHAGE Citric Acid/Sodium Citrate (Citric Acid/Sodium Citrate Solution 30 Ml Cup) Confirm Administered Dose 30 ml .ROUTE .STK-MED ONE Stop: 06/01/21 18:17 Last Admin: 06/01/21 19:10 Dose: 30 ml Documented by: Citric Acid/Sodium Citrate (Citric Acid/Sodium Citrate Solution 30 Ml Cup) 30 ml PO ONETIME ONE Stop: 06/01/21 18:18 Last Admin: 06/01/21 18:30 Dose: 30 ml Documented by: Ephedrine Sulfate (Ephedrine 50 Mg/Ml Sdv) 5 mg IVPUSH Q5M PRN PRN Reason: See Label Comments Last Admin: 06/01/21 13:01 Dose: 5 mg Documented by: Epinephrine HCl (Epinephrine 1 Mg/Ml Sdv) Confirm Administered Dose 1 mg .ROUTE .STK-MED ONE Stop: 06/01/21 12:36 Last Admin: 06/01/21 16:53 Dose: Not Given Documented by: Fentanyl (Fentanyl 100 Mcg/2 Ml Sdv) Confirm Administered Dose 100 mcg .ROUTE .STK-MED ONE Stop: 06/01/21 12:36 Last Admin: 06/01/21 16:54 Dose: Not Given Documented by: Fentanyl (Fentanyl 100 Mcg/2 Ml Sdv) Confirm Administered Dose 100 mcg .ROUTE .STK-MED ONE Stop: 06/01/21 17:40 Last Admin: 06/02/21 11:01 Dose: Not Given Documented by: Fentanyl (Fentanyl 100 Mcg/2 Ml Sdv) 100 mcg IVPUSH ONETIME ONE Stop: 06/01/21 17:39 Last Admin: 06/02/21 11:00 Dose: Not Given Documented by: Fentanyl (Fentanyl 100 Mcg/2 Ml Sdv) 50 mcg IVPUSH ONETIME ONE Stop: 06/01/21 17:45 Last Admin: 06/01/21 17:50 Dose: 50 mcg Documented by: Tranexamic Acid 1,000 mg/ (Sodium Chloride) 110 mls @ 660 mls/hr IV ONETIME PRN PRN Reason: Bleeding Oxytocin/Sodium Chloride (Pitocin In Ns 30 Unit/500 Ml) 30 unit in 500 mls @ 2 mls/hr IV TITRATE JU[facility]; Protocol Last Admin: 06/01/21 16:50 Dose: 2 munits/min, 2 mls/hr Documented by: Lactated Ringer's (Ringers, Lactated) 500 mls @ 999 mls/hr IV SEECOMMENT JU[facility] Lactated Ringer's (Ringers, Lactated) 500 mls @ 999 mls/hr IV .BOLUS JUAN Lactated Ringer's (Ringers, Lactated) 1,000 mls @ 999 mls/hr IV BOLUS ONE Stop: 06/01/21 01:01 Last Admin: 06/01/21 19:00 Dose: Not Given Documented by: Lactated Ringer's (Ringers, Lactated) 1,000 mls @ 125 mls/hr IV ASDIRECTED [facility] Last Admin: 06/01/21 19:04 Dose: 125 mls/hr Documented by: Lactated Ringer's (Ringers, Lactated) 1,000 mls @ 125 mls/hr IV ASDIRECTED [facility] Last Admin: 06/01/21 19:52 Dose: 125 mls/hr Documented by: Lactated Ringer's (Ringers, Lactated) 1,000 mls @ 500 mls/hr IV .BOLUS [facility] Cefazolin Sodium/Dextrose 2 gm (/ Premix) 50 mls @ 100 mls/hr IV ONETIME ONE Stop: 06/01/21 18:46 Last Admin: 06/01/21 18:43 Dose: 100 mls/hr Documented by: Cefazolin Sodium/Dextrose (Ancef 2 Gm/50 Ml) Confirm Administered Dose 100 mls @ as directed .ROUTE .STK-MED ONE Stop: 06/01/21 18:25 Lidocaine HCl (Lidocaine 1% 30 Ml Sdv) 30 ml INJECT ASDIRECTED PRN PRN Reason: Perineal Repair Misoprostol (Misoprostol 50 Mcg (1/2 Of 100 Mcg) Tab) 50 mcg PO Q4H PRN PRN Reason: cervical ripening Last Admin: 06/01/21 01:02 Dose: 50 mcg Documented by: Nalbuphine HCl (Nalbuphine 10 Mg/1 Ml Vial) 20 mg IM ONETIME STA Stop: 06/01/21 07:03 Last Admin: 06/01/21 07:15 Dose: 20 mg Documented by: Ondansetron HCl (Ondansetron 4 Mg/2 Ml Sdv) 4 mg IVPUSH Q4H PRN PRN Reason: Nausea/Vomiting Last Admin: 06/01/21 12:45 Dose: 4 mg Documented by: Ondansetron HCl (Ondansetron 4 Mg/2 Ml Sdv) 4 mg IVPUSH Q4H PRN PRN Reason: Nausea/Vomiting Promethazine HCl (Promethazine 25 Mg/Ml Sdv) 12.5 mg IM Q6H PRN PRN Reason: Nausea/Vomiting Sodium Bicarbonate (Sodium Bicarbonate 4.2% 2.5 Meq/5 Ml Sdv) Confirm Administered Dose 2.5 meq .ROUTE .STK-MED ONE Stop: 06/01/21 12:36 Last Admin: 06/01/21 16:53 Dose: Not Given Documented by: Sodium Chloride (Sodium Chloride 0.9% 10 Ml Syringe) 10 ml FLUSH ASDIRECTED PRN PRN Reason: Keep Vein Open Sufentanil Citrate (Sufentanil 50 Mcg/1 Ml Amp) Confirm Administered Dose 50 mcg .ROUTE .STK-MED ONE Stop: 06/01/21 12:36 Last Admin: 06/02/21 11:00 Dose: Not Given Documented by: - Interaction Disposition, : in Room with Family Infant Interaction: Holding Infant Infant Feeding: Breastfed Infant; Nursed Well Support Person: Significant Other - Recovery Exam Fundal Tone: Firm Fundal Level: At Umbilicus Fundal Placement: Midline Lochia Amount: Scant Lochia Color: Rubra/Red Perineum Description: Edematous Other Perinuem Description: PaDs changed Episiotomy/Laceration: None Bladder Status: Nonpalpable Urinary Elimination: Indwelling Catheter - Exam General: Alert, Oriented Lungs: Clear to Auscultation, Normal Respiratory Effort Cardiovascular: Regular Rate, Regular Rhythm, No Murmurs GI/Abdominal Exam: Soft Extremities: Pedal Edema (2+ to feet and ankles bilaterally) Wound/Incisions: Dressing Dry and Intact Neurological: No New Focal Deficit - Problem List & Annotations (1) care in third trimester SNOMED Code(s): 723357987, 30751480, 24438873, 420816772, 676079162 Code(s): Z34.93 - ENCNTR FOR SUPRVSN OF NORMAL PREG, UNSP, THIRD TRIMESTER Status: Acute Current Visit: Yes (2) Status post delivery SNOMED Code(s): 106252468, 039291979 Code(s): Z98.891 - HISTORY OF UTERINE SCAR FROM PREVIOUS SURGERY Status: Acute Current Visit: Yes (3) Anemia affecting in third trimester SNOMED Code(s): 43311587, 33112280 Code(s): O99.013 - ANEMIA COMPLICATING , THIRD TRIMESTER Status: Acute Current Visit: Yes (4) Hypothyroid in , antepartum SNOMED Code(s): 539646507 Code(s): O99.280 - ENDO, NUTRITIONAL AND METAB DISEASES COMP PREG, UNSP TRI; E03.9 - HYPOTHYROIDISM, UNSPECIFIED Status: Acute Current Visit: Yes - Problem List Review Problem List Initiated/Reviewed/Updated: Yes - Assessment Assessment:: 20-year-old now POD#1 s/p pLTCS at 40w5d - Plan Plan:: 1. Continue routine orders 2. 3. Mild anemia--already on ferrous sulfate 4. Anticipate discharge 06/04/2021 Erin Mohr MD
[2021-06-02] MEDS: Ibuprofen 800 MG Tab PO PRN (20:38)
[2021-06-02] MEDS: Acetaminophen/oxyCODONE 325-5 MG Tab PO PRN (20:39)
[2021-06-03] MEDS: Acetaminophen/oxyCODONE 325-5 MG Tab PO PRN ×4 (00:58→23:38)
[2021-06-03] MEDS: Ibuprofen 800 MG Tab PO PRN ×2 (05:52→18:11)
[2021-06-03] MEDS: Levothyroxine 125 MCG Tab PO SCH (05:52)
[2021-06-03] MEDS: Levothyroxine 25 MCG Tab PO SCH (05:53)
[2021-06-03] MEDS: Simethicone 80 MG Tab.Chew PO SCH ×4 (09:11→20:54)
[2021-06-03] MEDS: Ferrous Sulfate 325 MG Tab PO SCH (09:11)
[2021-06-03] MEDS: Prenatal Multivitamin with Calcium/Folic Acid/Iron Tab PO SCH (09:11)
[2021-06-03] MEDS: Docusate Sodium 100 MG Cap PO PRN ×2 (09:12→20:54)
--- NOTE | 2021-06-03 09:39 | PCM.PNPP ---
- Patient Data Vital Signs - Most Recent: Last Vital Signs Temp 35.6 C L 06/02/21 20:42 Pulse 73 06/02/21 20:42 Resp 15 06/02/21 20:42 BP 119/69 06/02/21 20:42 Pulse Ox 99 06/02/21 20:42 Weight - Most Recent: 78.471 kg I&O - Last 24 Hours: Intake & Output 06/02/21 06/03/21 06/03/21 22:59 06:59 14:59 Output Total 500 Balance -500 Med Orders - Current: Current Medications Acetaminophen (Acetaminophen 325 Mg Tab) 650 mg PO Q4H PRN PRN Reason: Pain (Mild 1-3) and fever Diphenhydramine HCl (Diphenhydramine 50 Mg/Ml Sdv) 25 mg IVPUSH Q6H PRN PRN Reason: Itching or Nausea Docusate Sodium (Docusate Sodium 100 Mg Cap) 100 mg PO Q12H PRN PRN Reason: Constipation Last Admin: 06/03/21 09:12 Dose: 100 mg Documented by: Ephedrine Sulfate (Ephedrine 50 Mg/Ml Sdv) 5 mg IVPUSH SEECOMMENT PRN PRN Reason: Other Ferrous Sulfate (Ferrous Sulfate 325 Mg Tab) 325 mg PO WITHBREAKFAST [facility] Last Admin: 06/03/21 09:11 Dose: 325 mg Documented by: Tranexamic Acid 1,000 mg/ (Sodium Chloride) 110 mls @ 660 mls/hr IV ONETIME PRN PRN Reason: Bleeding Oxytocin/Sodium Chloride (Pitocin In Ns 30 Unit/500 Ml) 30 unit in 500 mls @ 2 mls/hr IV TITRATE [facility]; Protocol Last Titration: 06/01/21 23:00 Dose: 0 munits/min, 0 mls/hr Documented by: Lactated Ringer's (Ringers, Lactated) 1,000 mls @ 125 mls/hr IV ASDIRECTED [facility] Last Admin: 06/02/21 03:45 Dose: 125 mls/hr Documented by: Ibuprofen (Ibuprofen 800 Mg Tab) 800 mg PO Q8H PRN PRN Reason: Cramping Last Admin: 06/03/21 05:52 Dose: 800 mg Documented by: Levothyroxine Sodium (Levothyroxine 125 Mcg Tab) 125 mcg PO ACBREAKFAST [facility] Last Admin: 06/03/21 05:52 Dose: 125 mcg Documented by: Levothyroxine Sodium (Levothyroxine 25 Mcg Tab) 12.5 mcg PO ACBRK [facility] Last Admin: 06/03/21 05:53 Dose: 12.5 mcg Documented by: Methylergonovine Maleate (Methylergonovine 0.2 Mg/1 Ml Amp) 0.2 mg IM ASDIRECTED PRN PRN Reason: Hemorrhage Misoprostol (Misoprostol 400 Mcg (4 X 100 Mcg Tab)) 800 mcg RECTAL ASDIRECTED PRN PRN Reason: Hemorrhage Naloxone HCl (Naloxone 2 Mg/2 Ml Syringe) 0.1 mg IVPUSH SEECOMMENT PRN PRN Reason: Respiratory Depression Naloxone HCl (Naloxone 2 Mg/2 Ml Syringe) 0.1 mg IVPUSH SEECOMMENT PRN PRN Reason: Respiratory Depression Ondansetron HCl (Ondansetron 4 Mg/2 Ml Sdv) 4 mg IVPUSH Q4H PRN PRN Reason: Nausea/Vomiting Oxycodone/Acetaminophen (Acetaminophen/Oxycodone 325-5 Mg Tab) 1 tab PO Q4H PRN PRN Reason: Pain (moderate 4-6) Last Admin: 06/02/21 20:39 Dose: 1 tab Documented by: Oxycodone/Acetaminophen (Acetaminophen/Oxycodone 325-5 Mg Tab) 2 tab PO Q4H PRN PRN Reason: Pain (moderate 4-6) Last Admin: 06/03/21 00:58 Dose: 2 tab Documented by: Prenat Multivit/[place]/Iron/Folic Ac ( Multivitamin With Calcium/Folic Acid/Iron Tab) 1 each PO DAILY [facility] Last Admin: 06/03/21 09:11 Dose: 1 each Documented by: Simethicone (Simethicone 80 Mg Tab.Chew) 160 mg PO QID [facility] Last Admin: 06/03/21 09:11 Dose: 160 mg Documented by: Discontinued Medications Acetaminophen (Acetaminophen 325 Mg Tab) 650 mg PO Q4H PRN PRN Reason: Pain/Fever Carboprost Tromethamine (Carboprost Tromethamine 250 Mcg/1 Ml Amp) 250 mcg IM ASDIRECTED PRN PRN Reason: HEMORRHAGE Citric Acid/Sodium Citrate (Citric Acid/Sodium Citrate Solution 30 Ml Cup) Confirm Administered Dose 30 ml .ROUTE .STK-MED ONE Stop: 06/01/21 18:17 Last Admin: 06/01/21 19:10 Dose: 30 ml Documented by: Citric Acid/Sodium Citrate (Citric Acid/Sodium Citrate Solution 30 Ml Cup) 30 ml PO ONETIME ONE Stop: 06/01/21 18:18 Last Admin: 06/01/21 18:30 Dose: 30 ml Documented by: Ephedrine Sulfate (Ephedrine 50 Mg/Ml Sdv) 5 mg IVPUSH Q5M PRN PRN Reason: See Label Comments Last Admin: 06/01/21 13:01 Dose: 5 mg Documented by: Epinephrine HCl (Epinephrine 1 Mg/Ml Sdv) Confirm Administered Dose 1 mg .ROUTE .STK-MED ONE Stop: 06/01/21 12:36 Last Admin: 06/01/21 16:53 Dose: Not Given Documented by: Fentanyl (Fentanyl 100 Mcg/2 Ml Sdv) Confirm Administered Dose 100 mcg .ROUTE .STK-MED ONE Stop: 06/01/21 12:36 Last Admin: 06/01/21 16:54 Dose: Not Given Documented by: Fentanyl (Fentanyl 100 Mcg/2 Ml Sdv) Confirm Administered Dose 100 mcg .ROUTE .STK-MED ONE Stop: 06/01/21 17:40 Last Admin: 06/02/21 11:01 Dose: Not Given Documented by: Fentanyl (Fentanyl 100 Mcg/2 Ml Sdv) 100 mcg IVPUSH ONETIME ONE Stop: 06/01/21 17:39 Last Admin: 06/02/21 11:00 Dose: Not Given Documented by: Fentanyl (Fentanyl 100 Mcg/2 Ml Sdv) 50 mcg IVPUSH ONETIME ONE Stop: 06/01/21 17:45 Last Admin: 06/01/21 17:50 Dose: 50 mcg Documented by: Tranexamic Acid 1,000 mg/ (Sodium Chloride) 110 mls @ 660 mls/hr IV ONETIME PRN PRN Reason: Bleeding Oxytocin/Sodium Chloride (Pitocin In Ns 30 Unit/500 Ml) 30 unit in 500 mls @ 2 mls/hr IV TITRATE JU[facility]; Protocol Last Admin: 06/01/21 16:50 Dose: 2 munits/min, 2 mls/hr Documented by: Lactated Ringer's (Ringers, Lactated) 500 mls @ 999 mls/hr IV SEECOMMENT JUAN Lactated Ringer's (Ringers, Lactated) 500 mls @ 999 mls/hr IV .BOLUS JU[facility] Lactated Ringer's (Ringers, Lactated) 1,000 mls @ 999 mls/hr IV BOLUS ONE Stop: 06/01/21 01:01 Last Admin: 06/01/21 19:00 Dose: Not Given Documented by: Lactated Ringer's (Ringers, Lactated) 1,000 mls @ 125 mls/hr IV ASDIRECTED [facility] Last Admin: 06/01/21 19:04 Dose: 125 mls/hr Documented by: Lactated Ringer's (Ringers, Lactated) 1,000 mls @ 125 mls/hr IV ASDIRECTED [facility] Last Admin: 06/01/21 19:52 Dose: 125 mls/hr Documented by: Lactated Ringer's (Ringers, Lactated) 1,000 mls @ 500 mls/hr IV .BOLUS [facility] Cefazolin Sodium/Dextrose 2 gm (/ Premix) 50 mls @ 100 mls/hr IV ONETIME ONE Stop: 06/01/21 18:46 Last Admin: 06/01/21 18:43 Dose: 100 mls/hr Documented by: Cefazolin Sodium/Dextrose (Ancef 2 Gm/50 Ml) Confirm Administered Dose 100 mls @ as directed .ROUTE .STK-MED ONE Stop: 06/01/21 18:25 Ketorolac Tromethamine (Ketorolac 30 Mg/Ml Sdv) 15 mg IVPUSH Q6H [facility] Stop: 06/02/21 13:31 Last Admin: 06/02/21 14:07 Dose: 15 mg Documented by: Lidocaine HCl (Lidocaine 1% 30 Ml Sdv) 30 ml INJECT ASDIRECTED PRN PRN Reason: Perineal Repair Misoprostol (Misoprostol 50 Mcg (1/2 Of 100 Mcg) Tab) 50 mcg PO Q4H PRN PRN Reason: cervical ripening Last Admin: 06/01/21 01:02 Dose: 50 mcg Documented by: Nalbuphine HCl (Nalbuphine 10 Mg/1 Ml Vial) 20 mg IM ONETIME STA Stop: 06/01/21 07:03 Last Admin: 06/01/21 07:15 Dose: 20 mg Documented by: Ondansetron HCl (Ondansetron 4 Mg/2 Ml Sdv) 4 mg IVPUSH Q4H PRN PRN Reason: Nausea/Vomiting Last Admin: 06/01/21 12:45 Dose: 4 mg Documented by: Ondansetron HCl (Ondansetron 4 Mg/2 Ml Sdv) 4 mg IVPUSH Q4H PRN PRN Reason: Nausea/Vomiting Promethazine HCl (Promethazine 25 Mg/Ml Sdv) 12.5 mg IM Q6H PRN PRN Reason: Nausea/Vomiting Sodium Bicarbonate (Sodium Bicarbonate 4.2% 2.5 Meq/5 Ml Sdv) Confirm Administered Dose 2.5 meq .ROUTE .STK-MED ONE Stop: 06/01/21 12:36 Last Admin: 06/01/21 16:53 Dose: Not Given Documented by: Sodium Chloride (Sodium Chloride 0.9% 10 Ml Syringe) 10 ml FLUSH ASDIRECTED PRN PRN Reason: Keep Vein Open Sufentanil Citrate (Sufentanil 50 Mcg/1 Ml Amp) Confirm Administered Dose 50 mcg .ROUTE .[employer] ONE Stop: 06/01/21 12:36 Last Admin: 06/02/21 11:00 Dose: Not Given Documented by: - Interaction Disposition, : [place] in Room with Family Infant Interaction: Holding Infant Infant Feeding: Breastfed Infant; Nursed Well Support Person: Significant Other - Recovery Exam Fundal Tone: Firm Fundal Level: At Umbilicus Fundal Placement: Midline Lochia Amount: Scant Lochia Color: Rubra/Red Perineum Description: Intact, Minimal Bruising/Swelling Other Perinuem Description: PaDs changed Episiotomy/Laceration: None Bladder Status: Voiding Urinary Elimination: Voided - Problem List & Annotations (1) care in third trimester SNOMED Code(s): 936285394, 32157936, 86188267, 179177712, 024834152 Code(s): Z34.93 - ENCNTR FOR SUPRVSN OF NORMAL PREG, UNSP, THIRD TRIMESTER Status: Acute Current Visit: Yes (2) Status post delivery SNOMED Code(s): 121732548, 888835392 Code(s): Z98.891 - HISTORY OF UTERINE SCAR FROM PREVIOUS SURGERY Status: Acute Current Visit: Yes (3) Anemia affecting in third trimester SNOMED Code(s): 42836583, 79393089 Code(s): O99.013 - ANEMIA COMPLICATING , THIRD TRIMESTER Status: Acute Current Visit: Yes (4) Hypothyroid in , antepartum SNOMED Code(s): 880854452 Code(s): O99.280 - ENDO, NUTRITIONAL AND METAB DISEASES COMP PREG, UNSP TRI; E03.9 - HYPOTHYROIDISM, UNSPECIFIED Status: Acute Current Visit: Yes - Assessment Assessment:: 20-year-old now POD#1 s/p pLTCS at 40w5d - Plan Plan:: 1. Continue routine orders 2. 3. Mild anemia--already on ferrous sulfate 4. Anticipate discharge 06/04/2021 Erin Mohr MD
[2021-06-04] MEDS: Levothyroxine 25 MCG Tab PO SCH (06:04)
[2021-06-04] MEDS: Levothyroxine 125 MCG Tab PO SCH (06:04)
[2021-06-04] MEDS: Acetaminophen/oxyCODONE 325-5 MG Tab PO PRN ×2 (06:05→10:07)
[2021-06-04] MEDS: Prenatal Multivitamin with Calcium/Folic Acid/Iron Tab PO SCH (10:06)
[2021-06-04] MEDS: Docusate Sodium 100 MG Cap PO PRN (10:06)
[2021-06-04] MEDS: Simethicone 80 MG Tab.Chew PO SCH (10:06)
[2021-06-04] MEDS: Ibuprofen 800 MG Tab PO PRN (10:07)
[2021-06-04] MEDS: Ferrous Sulfate 325 MG Tab PO SCH (10:09)
--- NOTE | 2021-06-04 12:25 | PCM.DCSUM1 ---
Discharge Summary - Hospital Course Diagnosis: Stroke: No - Discharge Data Discharge Disposition: Home, Self-Care 01 Condition: Good - Referral to Home Health Primary Care Physician: Sanaz Casiano MD - Discharge Diagnosis/Problem(s) (1) care in third trimester SNOMED Code(s): 591830757, [id number], 95109192, [id number], [id number] ICD Code: Z34.93 - ENCNTR FOR SUPRVSN OF NORMAL PREG, UNSP, THIRD TRIMESTER Status: Acute Current Visit: Yes (2) Status post delivery SNOMED Code(s): 384893085, 152156736 ICD Code: Z98.891 - HISTORY OF UTERINE SCAR FROM PREVIOUS SURGERY Status: Acute Current Visit: Yes (3) Anemia affecting in third trimester SNOMED Code(s): 15955114, 13630402 ICD Code: O99.013 - ANEMIA COMPLICATING , THIRD TRIMESTER Status: Acute Current Visit: Yes (4) Hypothyroid in , antepartum SNOMED Code(s): 742545326 ICD Code: O99.280 - ENDO, NUTRITIONAL AND METAB DISEASES COMP PREG, UNSP TRI; E03.9 - HYPOTHYROIDISM, UNSPECIFIED Status: Acute Current Visit: Yes - Patient Summary/Data Consults: Consultations 06/01/21 20:00 Consult to Scratcher Tender [CONS] Routine - Patient Instructions Diet: Usual Diet as Tolerated Activity: As Tolerated, No Lifting Over 20 Pounds Driving: Do Not Drive (while takign pain medication) Showering/Bathing: May Shower Wound/Incision Care: Keep Operative Site/Wound Site Clean and Dry Notify Provider of: Fever, Increased Pain, Swelling and Redness, Drainage, Nausea and/or Vomiting - Discharge Plan *PRESCRIPTION DRUG MONITORING PROGRAM REVIEWED*: No *COPY OF PRESCRIPTION DRUG MONITORING REPORT IN PATIENT CJ: No Home Medications: Home Meds Ascorbate Calcium [Vitamin C] 500 mg PO BID 05/29/21 [History] Ferrous Sulfate [Iron] 325 mg PO BID 05/29/21 [History] Levothyroxine 137 mcg PO DAILY 05/29/21 [History] Pnv,Calcium 72/Iron/Folic Acid [M- Plus Tablet] 1 tab PO DAILY 05/29/21 [History] Acetaminophen [Tylenol] 650 mg PO Q4H PRN tablet 06/04/21 [Rx] Acetaminophen/oxyCODONE [Percocet 325-5 MG] 1 tab PO Q4H PRN tablet 06/04/21 [Rx] Docusate Sodium [Colace] 100 mg PO Q12H PRN cap 06/04/21 [Rx] Ibuprofen [Motrin] 800 mg PO Q8H PRN tablet 06/04/21 [Rx] Patient Handouts: Baby Blues, Delivery, Care After - Patient Data Vitals - Most Recent: Last Vital Signs Temp 36.9 C 06/04/21 08:00 Pulse 59 L 06/04/21 08:00 Resp 16 06/04/21 08:00 BP 121/88 06/04/21 08:00 Pulse Ox 99 06/04/21 08:00 Weight - Most Recent: 78.471 kg Med Orders - Current: Current Medications Acetaminophen (Acetaminophen 325 Mg Tab) 650 mg PO Q4H PRN PRN Reason: Pain (Mild 1-3) and fever Diphenhydramine HCl (Diphenhydramine 50 Mg/Ml Sdv) 25 mg IVPUSH Q6H PRN PRN Reason: Itching or Nausea Docusate Sodium (Docusate Sodium 100 Mg Cap) 100 mg PO Q12H PRN PRN Reason: Constipation Last Admin: 06/04/21 10:06 Dose: 100 mg Documented by: Ephedrine Sulfate (Ephedrine 50 Mg/Ml Sdv) 5 mg IVPUSH SEECOMMENT PRN PRN Reason: Other Ferrous Sulfate (Ferrous Sulfate 325 Mg Tab) 325 mg PO WITHBREAKFAST JUAN Last Admin: 06/04/21 10:09 Dose: 325 mg Documented by: Tranexamic Acid 1,000 mg/ (Sodium Chloride) 110 mls @ 660 mls/hr IV ONETIME PRN PRN Reason: Bleeding Oxytocin/Sodium Chloride (Pitocin In Ns 30 Unit/500 Ml) 30 unit in 500 mls @ 2 mls/hr IV TITRATE JUAN; Protocol Last Titration: 06/01/21 23:00 Dose: 0 munits/min, 0 mls/hr Documented by: Lactated Ringer's (Ringers, Lactated) 1,000 mls @ 125 mls/hr IV ASDIRECTED JUAN Last Admin: 06/02/21 03:45 Dose: 125 mls/hr Documented by: Ibuprofen (Ibuprofen 800 Mg Tab) 800 mg PO Q8H PRN PRN Reason: Cramping Last Admin: 06/04/21 10:07 Dose: 800 mg Documented by: Levothyroxine Sodium (Levothyroxine 125 Mcg Tab) 125 mcg PO ACBREAKFAST [facility] Last Admin: 06/04/21 06:04 Dose: 125 mcg Documented by: Levothyroxine Sodium (Levothyroxine 25 Mcg Tab) 12.5 mcg PO ACBRK [facility] Last Admin: 06/04/21 06:04 Dose: 12.5 mcg Documented by: Methylergonovine Maleate (Methylergonovine 0.2 Mg/1 Ml Amp) 0.2 mg IM ASDIRECTED PRN PRN Reason: Hemorrhage Misoprostol (Misoprostol 400 Mcg (4 X 100 Mcg Tab)) 800 mcg RECTAL ASDIRECTED PRN PRN Reason: Hemorrhage Naloxone HCl (Naloxone 2 Mg/2 Ml Syringe) 0.1 mg IVPUSH SEECOMMENT PRN PRN Reason: Respiratory Depression Naloxone HCl (Naloxone 2 Mg/2 Ml Syringe) 0.1 mg IVPUSH SEECOMMENT PRN PRN Reason: Respiratory Depression Ondansetron HCl (Ondansetron 4 Mg/2 Ml Sdv) 4 mg IVPUSH Q4H PRN PRN Reason: Nausea/Vomiting Oxycodone/Acetaminophen (Acetaminophen/Oxycodone 325-5 Mg Tab) 1 tab PO Q4H PRN PRN Reason: Pain (moderate 4-6) Last Admin: 06/03/21 18:12 Dose: 1 tab Documented by: Oxycodone/Acetaminophen (Acetaminophen/Oxycodone 325-5 Mg Tab) 2 tab PO Q4H PRN PRN Reason: Pain (moderate 4-6) Last Admin: 06/04/21 10:07 Dose: 2 tab Documented by: Prenat Multivit/Ziebach/Iron/Folic Ac ( Multivitamin With Calcium/Folic Acid/Iron Tab) 1 each PO DAILY [facility] Last Admin: 06/04/21 10:06 Dose: 1 each Documented by: Simethicone (Simethicone 80 Mg Tab.Chew) 160 mg PO QID [facility] Last Admin: 06/04/21 10:06 Dose: 160 mg Documented by: Discontinued Medications Acetaminophen (Acetaminophen 325 Mg Tab) 650 mg PO Q4H PRN PRN Reason: Pain/Fever Carboprost Tromethamine (Carboprost Tromethamine 250 Mcg/1 Ml Amp) 250 mcg IM ASDIRECTED PRN PRN Reason: HEMORRHAGE Citric Acid/Sodium Citrate (Citric Acid/Sodium Citrate Solution 30 Ml Cup) Confirm Administered Dose 30 ml .ROUTE .STK-MED ONE Stop: 06/01/21 18:17 Last Admin: 06/01/21 19:10 Dose: 30 ml Documented by: Citric Acid/Sodium Citrate (Citric Acid/Sodium Citrate Solution 30 Ml Cup) 30 ml PO ONETIME ONE Stop: 06/01/21 18:18 Last Admin: 06/01/21 18:30 Dose: 30 ml Documented by: Ephedrine Sulfate (Ephedrine 50 Mg/Ml Sdv) 5 mg IVPUSH Q5M PRN PRN Reason: See Label Comments Last Admin: 06/01/21 13:01 Dose: 5 mg Documented by: Epinephrine HCl (Epinephrine 1 Mg/Ml Sdv) Confirm Administered Dose 1 mg .ROUTE .STK-MED ONE Stop: 06/01/21 12:36 Last Admin: 06/01/21 16:53 Dose: Not Given Documented by: Epinephrine HCl (Epinephrine 1 Mg/Ml Sdv) 0.1 mg .XX .STK-MED ONE Stop: 06/01/21 12:37 Fentanyl (Fentanyl 100 Mcg/2 Ml Sdv) Confirm Administered Dose 100 mcg .ROUTE .STK-MED ONE Stop: 06/01/21 12:36 Last Admin: 06/01/21 16:54 Dose: Not Given Documented by: Fentanyl (Fentanyl 100 Mcg/2 Ml Sdv) Confirm Administered Dose 100 mcg .ROUTE .STK-MED ONE Stop: 06/01/21 17:40 Last Admin: 06/02/21 11:01 Dose: Not Given Documented by: Fentanyl (Fentanyl 100 Mcg/2 Ml Sdv) 100 mcg IVPUSH ONETIME ONE Stop: 06/01/21 17:39 Last Admin: 06/02/21 11:00 Dose: Not Given Documented by: Fentanyl (Fentanyl 100 Mcg/2 Ml Sdv) 50 mcg IVPUSH ONETIME ONE Stop: 06/01/21 17:45 Last Admin: 06/01/21 17:50 Dose: 50 mcg Documented by: Fentanyl (Fentanyl 100 Mcg/2 Ml Sdv) 35 mcg ITHECAL .STK-MED ONE Stop: 06/01/21 12:37 Tranexamic Acid 1,000 mg/ (Sodium Chloride) 110 mls @ 660 mls/hr IV ONETIME PRN PRN Reason: Bleeding Oxytocin/Sodium Chloride (Pitocin In Ns 30 Unit/500 Ml) 30 unit in 500 mls @ 2 mls/hr IV TITRATE JUAN; Protocol Last Admin: 06/01/21 16:50 Dose: 2 munits/min, 2 mls/hr Documented by: Lactated Ringer's (Ringers, Lactated) 500 mls @ 999 mls/hr IV SEECOMMENT JUAN Lactated Ringer's (Ringers, Lactated) 500 mls @ 999 mls/hr IV .BOLUS JUAN Lactated Ringer's (Ringers, Lactated) 1,000 mls @ 999 mls/hr IV BOLUS ONE Stop: 06/01/21 01:01 Last Admin: 06/01/21 19:00 Dose: Not Given Documented by: Lactated Ringer's (Ringers, Lactated) 1,000 mls @ 125 mls/hr IV ASDIRECTED [facility] Last Admin: 06/01/21 19:04 Dose: 125 mls/hr Documented by: Lactated Ringer's (Ringers, Lactated) 1,000 mls @ 125 mls/hr IV ASDIRECTED [facility] Last Admin: 06/01/21 19:52 Dose: 125 mls/hr Documented by: Lactated Ringer's (Ringers, Lactated) 1,000 mls @ 500 mls/hr IV .BOLUS JUAN Cefazolin Sodium/Dextrose 2 gm (/ Premix) 50 mls @ 100 mls/hr IV ONETIME ONE Stop: 06/01/21 18:46 Last Admin: 06/01/21 18:43 Dose: 100 mls/hr Documented by: Cefazolin Sodium/Dextrose (Ancef 2 Gm/50 Ml) Confirm Administered Dose 100 mls @ as directed .ROUTE .STK-MED ONE Stop: 06/01/21 18:25 Ketorolac Tromethamine (Ketorolac 30 Mg/Ml Sdv) 15 mg IVPUSH Q6H [facility] Stop: 06/02/21 13:31 Last Admin: 06/02/21 14:07 Dose: 15 mg Documented by: Lidocaine HCl (Lidocaine 1% 30 Ml Sdv) 30 ml INJECT ASDIRECTED PRN PRN Reason: Perineal Repair Misoprostol (Misoprostol 50 Mcg (1/2 Of 100 Mcg) Tab) 50 mcg PO Q4H PRN PRN Reason: cervical ripening Last Admin: 06/01/21 01:02 Dose: 50 mcg Documented by: Nalbuphine HCl (Nalbuphine 10 Mg/1 Ml Vial) 20 mg IM ONETIME STA Stop: 06/01/21 07:03 Last Admin: 06/01/21 07:15 Dose: 20 mg Documented by: Ondansetron HCl (Ondansetron 4 Mg/2 Ml Sdv) 4 mg IVPUSH Q4H PRN PRN Reason: Nausea/Vomiting Last Admin: 06/01/21 12:45 Dose: 4 mg Documented by: Ondansetron HCl (Ondansetron 4 Mg/2 Ml Sdv) 4 mg IVPUSH Q4H PRN PRN Reason: Nausea/Vomiting Promethazine HCl (Promethazine 25 Mg/Ml Sdv) 12.5 mg IM Q6H PRN PRN Reason: Nausea/Vomiting Sodium Bicarbonate (Sodium Bicarbonate 4.2% 2.5 Meq/5 Ml Sdv) Confirm Administered Dose 2.5 meq .ROUTE .STK-MED ONE Stop: 06/01/21 12:36 Last Admin: 06/01/21 16:53 Dose: Not Given Documented by: Sodium Bicarbonate (Sodium Bicarbonate 4.2% 2.5 Meq/5 Ml Sdv) 0.5 meq .XX .STK- MED ONE Stop: 06/01/21 12:37 Sodium Chloride (Sodium Chloride 0.9% 10 Ml Syringe) 10 ml FLUSH ASDIRECTED PRN PRN Reason: Keep Vein Open Sodium Chloride (Sodium Chloride 0.9% 20 Ml Sdv) 0.4 ml .XX .STK-MED ONE Stop: 06/01/21 12:37 Sufentanil Citrate (Sufentanil 50 Mcg/1 Ml Amp) Confirm Administered Dose 50 mcg .ROUTE .STK-MED ONE Stop: 06/01/21 12:36 Last Admin: 06/02/21 11:00 Dose: Not Given Documented by: Sufentanil Citrate (Sufentanil 50 Mcg/1 Ml Amp) 15 mcg ITHECAL .STK-MED ONE Stop: 06/01/21 12:37
[2021-06-04] MEDS ORDERED: Oxytocin/Normal Saline 30 UNIT/500 ML BAG IV ONE (13:09)
== END 2021-06-04 13:10 | disposition home or self-care (01) | DRG 540 ==
LOC: DL.OBCHECK 00:28 → DL.OB 00:31 → OBSVTOIN 18:17 → DL.MS 19:37
PROVIDERS: ADMIT Family Medicine; ATTEND Family Medicine
PROC: 10D00Z1 Extraction of Products of Conception, Low, Open Approach (ICD-10-PCS; principal; 2021-06-01)
PROC: 10907ZC Drainage of Amniotic Fluid, Therapeutic from Products of Conception, Via Natural or Artificial Opening (ICD-10-PCS; 2021-06-01)
PROC: 3E0P7VZ Introduction of Hormone into Female Reproductive, Via Natural or Artificial Opening (ICD-10-PCS; 2021-06-01)
PROC: 10H07YZ Insertion of Other Device into Products of Conception, Via Natural or Artificial Opening (ICD-10-PCS; 2021-06-01)
DX: O48.0 Post-term pregnancy (principal); O99.02 Anemia complicating childbirth; D64.9 Anemia, unspecified; Z3A.40 40 weeks gestation of pregnancy; Z37.0 Single live birth; O99.284 Endocrine, nutritional and metabolic diseases complicating childbirth; E03.9 Hypothyroidism, unspecified; Z79.890 Hormone replacement therapy; Z88.1 Allergy status to other antibiotic agents; O62.2 Other uterine inertia; Z20.822 Contact with and (suspected) exposure to COVID-19
CPT/HCPCS: 01961; 01967; 36415; 85027; 86850; 86900; 86901; A9270-GY; J0171; J0690; J1100; J1885; J2270; J2300; J2405; J2590; J3010; J7120; U0002

== ENCOUNTER 2022-03-11 00:58 | Emergency (ER) | payer BC ==
[2022-03-11] MEDS ORDERED: Cefuroxime 250 MG Tab PO ONE (01:14)
== END 2022-03-11 01:30 | disposition home or self-care (01) ==
LOC: DL.ED 00:58
DX: H66.002 Acute suppurative otitis media without spontaneous rupture of ear drum, left ear (principal); E05.90 Thyrotoxicosis, unspecified without thyrotoxic crisis or storm; Z88.0 Allergy status to penicillin; Z79.899 Other long term (current) drug therapy
CPT/HCPCS: 99282; A9270

== ENCOUNTER 2025-04-14 22:39 | Emergency (ER) | payer BC | END 2025-04-14 23:55 | disposition home or self-care (01) | LOC: DL.ED 22:39 | DX: S53.411A Radiohumeral (joint) sprain of right elbow, initial encounter (principal); Z88.0 Allergy status to penicillin; W18.39XA Other fall on same level, initial encounter; Y93.89 Activity, other specified | CPT/HCPCS: 73080-RT; 73090-RT; 99283 ==